=== PATIENT | male | born 1970 | race Caucasian/White ===

== ENCOUNTER 2018-02-10 19:57 | Observation (INO) | payer SELFPAY ==
[2018-02-10 20:23] VITALS: BP 137/79; PULSE 67; RESP 18; TEMP 98.1; O2SAT 95
[2018-02-10] MEDS ORDERED: SODIUM CHLORIDE 0.9% FLUSH 10 ML FLUSH IVF PRN (20:45)
[2018-02-10] MEDS ORDERED: ASPIRIN 81 MG CHEW TAB PO ONE (20:45)
[2018-02-10 21:11] LABS: AUTOMATED NEUTROPHIL # 4.2 TH/MM3 (1.8-7.7); BASOPHIL # 0.1 TH/MM3 (0-0.2); BASOPHIL % 0.8 % (0.0-2.0); EOSINOPHIL # 0.2 TH/MM3 (0-0.4); EOSINOPHIL % 2.2 % (0.0-4.0); HEMATOCRIT 43.5 % (39.0-51.0); HEMOGLOBIN 15.1 GM/DL (13.0-17.0); LYMPH % 31.5 % (9.0-44.0); LYMPHOCYTE # 2.3 TH/MM3 (1.0-4.8); MEAN CELL VOLUME 82.8 FL (80.0-100.0); MEAN CORPUSCULAR HEMOGLOBIN 28.7 PG (27.0-34.0); MEAN CORPUSCULAR HGB CONC 34.6 % (32.0-36.0); MEAN PLATELET VOLUME 8.3 FL (7.0-11.0); MONO % 8.1 % (0.0-8.0); MONOCYTE # 0.6 TH/MM3 (0-0.9); NEUT % 57.4 % (16.0-70.0); PLATELET COUNT 232 TH/MM3 (150-450); RED BLOOD COUNT 5.25 MIL/MM3 (4.50-5.90); RED CELL DISTRIBUTION WIDTH 13.1 % (11.6-17.2); WHITE BLOOD COUNT 7.3 TH/MM3 (4.0-11.0)
--- NOTE | 2018-02-10 21:42 | RADRPT ---
EXAM DATE: 02/10/2018 9:35 PM EDT AGE/SEX: 47 years / Male INDICATIONS: Chest pain. CLINICAL DATA: This is the patient's initial encounter. Patient reports that signs and symptoms have been present for 1 day and indicates a pain score of 10/10. MEDICAL/SURGICAL HISTORY: Hypercholesterolemia. AFIB. . Back surgery. COMPARISON: No prior [facility] exams available for comparison. FINDINGS: A single AP view of the chest demonstrates the lungs to be symmetrically aerated without evidence of mass, infiltrate or effusion. The cardiomediastinal contours are unremarkable. Osseous structures a re intact. CONCLUSION: Negative examination. Electronically signed by: Delfino Moeller MD 02/10/2018 9:41 PM EDT
[2018-02-10 21:43] LABS: TROPONIN I LESS THAN 0.02 NG/ML (0.02-0.05)
[2018-02-10 21:48] LABS: BICARBONATE 21.7 MEQ/L (21.0-32.0); BLOOD UREA NITROGEN 10 MG/DL (7-18); CALCIUM 8.6 MG/DL (8.5-10.1); CHLORIDE 105 MEQ/L (98-107); CREATININE 1.17 MG/DL (0.60-1.30); GLOMERULAR FILTRATION RATE 67 ML/MIN (>89); GLUCOSE,RANDOM 111 MG/DL (74-106); MAGNESIUM 2.2 MG/DL (1.5-2.5); SODIUM (NA) 138 MEQ/L (136-145)
--- NOTE | 2018-02-10 21:53 | PD ---
HPI Chief Complaint: Cardiac Complaint Time Seen by Provider: 20:39 Travel History International Travel<30 days: No Contact w/Intl Traveler<30days: No Traveled to known affect area: No History of Present Illness HPI This is a 47-year-old male with history of atrial fibrillation, who presents today with complaints of shortness of breath and palpitations. Patient also reports discomfort in his chest. He is unable to describe the discomfort but states it is pounding and uncomfortable. He reports having a history of atrial fibrillation and states that it paroxysmal at times. He is currently not in atrial fibrillation at this point. Pain patient denies any productive cough. He resides in [facility] or near there. 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 He reports driving down here yesterday. He reports that he took several breaks while driving down here. There are no other complaints at time of my examination. PFSH Past Medical History Atrial Fibrillation: Yes High Cholesterol: Yes Chest Pain: Yes Tetanus Vaccination: Unknown Past Surgical History Neurologic Surgery: Yes (Back sx x 2) Social History Alcohol Use: Yes (occasionally) Tobacco Use: No Substance Use: No Allergies-Medications (Allergen,Severity, Reaction): Coded Allergies: hydrocodone (Verified Allergy, Severe, itch, 02/10/18) oxycodone (Verified Allergy, Severe, 02/10/18) Reported Meds & Prescriptions Reported Meds & Active Scripts Active Reported Gabapentin 300 Mg Cap 300 Mg PO HS Flexeril (Cyclobenzaprine HCl) 10 Mg Tab 10 Mg PO TID Lisinopril 10 Mg Tab 10 Mg PO DAILY Pantoprazole (Pantoprazole Sodium) 40 Mg Tab 40 Mg PO DAILY PRN Verapamil ER 24 HR (Verapamil HCl) 240 Mg Tab 180 Mg PO DAILY Review of Systems Except as stated in HPI: all other systems reviewed are Neg General / Constitutional: No: Fever, Chills HENT: No: Headaches, Vertigo, Lightheadedness Cardiovascular: Positive: Chest Pain or Discomfort, Palpitations, Irregular Rhythm (history of atrial fibrillation) Respiratory: Positive: Shortness of Breath, No: Cough Gastrointestinal: No: Nausea, Vomiting, Abdominal Pain Musculoskeletal: No: Weakness, Pain Neurologic: No: Weakness, Dizziness, Headache Physical Exam Narrative GENERAL: Well-developed well-nourished male in no acute respiratory distress. SKIN: Focused skin assessment warm/dry. HEAD: Atraumatic. Normocephalic. EYES: No scleral icterus. No injection or drainage. ENT: No nasal bleeding or discharge. Mucous membranes pink and moist. NECK: Trachea midline. Supple. CARDIOVASCULAR: Regular rate and rhythm. No murmur appreciated. No ectopy. RESPIRATORY: No accessory muscle use. Clear to auscultation. Breath sounds equal bilaterally. GASTROINTESTINAL: Abdomen soft, non-tender, nondistended. Hepatic and splenic margins not palpable. MUSCULOSKELETAL: No obvious deformities. No clubbing. No cyanosis. No edema. NEUROLOGICAL: Awake and alert. No obvious cranial nerve deficits. Motor grossly within normal limits. Normal speech. PSYCHIATRIC: Appropriate mood and affect; insight and judgment normal. Data Data Last Documented VS Orders Orders Basic Metabolic Panel (Bmp) (02/10/18 20:39) Ckmb (Isoenzyme) Profile (02/10/18 20:39) Complete Blood Count With Diff (02/10/18 20:39) Magnesium (Mg) (02/10/18 20:39) Prothrombin Time / Inr (Pt) (02/10/18 20:39) Act Partial Throm Time (Ptt) (02/10/18 20:39) Troponin I (02/10/18 20:39) Chest, Single Ap (02/10/18 20:39) Ecg Monitoring (02/10/18 20:39) Bilateral Bp Monitoring (02/10/18 20:39) Iv Access Insert/Monitor (02/10/18 20:39) Oximetry (02/10/18 20:39) Oxygen Administration (02/10/18 20:39) Aspirin Chew (Aspirin Chew) (02/10/18 20:45) Sodium Chloride 0.9% Flush (Ns Flush) (02/10/18 20:45) CKMB (02/10/18 20:50) CKMB% (02/10/18 20:50) Electrocardiogram (02/10/18 20:37) Activity Bed Rest With Brp (02/10/18 23:19) Vital Signs (Adult) Q4H (02/10/18 23:19) Cardiac Rhythm .As Directed (02/10/18 23:19) Notify Dr: Other .PRN (02/10/18 23:19) Notify . Parameters (02/10/18 23:19) Resp Oxygen Nasal Cannula (02/10/18 ) Ckmb (Isoenzyme) Profile (02/10/18 23:45) Ckmb (Isoenzyme) Profile (02/11/18 02:45) Troponin I (02/10/18 23:45) Troponin I (02/11/18 02:45) Electrocardiogram (02/10/18 23:45) Electrocardiogram (02/11/18 02:45) ^ Obtain (02/10/18 23:19) Sodium Chloride 0.9% Flush (Ns Flush) (02/10/18 23:30) Sodium Chloride 0.9% Flush (Ns Flush) (02/10/18 23:30) Inspector Balance Bridge / Telemetry BREANA.Q8H (02/10/18 23:19) CKMB (02/10/18 23:59) CKMB% (02/10/18 23:59) Admit Order (Ed Use Only) (02/11/18 03:02) Labs Laboratory Tests Test 02/10/18 20:50 02/10/18 23:59 White Blood Count 7.3 TH/MM3 Red Blood Count 5.25 MIL/MM3 Hemoglobin 15.1 GM/DL Hematocrit 43.5 % Mean Corpuscular Volume 82.8 FL Mean Corpuscular Hemoglobin 28.7 PG Mean Corpuscular Hemoglobin Concent 34.6 % Red Cell Distribution Width 13.1 % Platelet Count 232 TH/MM3 Mean Platelet Volume 8.3 FL Neutrophils (%) (Auto) 57.4 % Lymphocytes (%) (Auto) 31.5 % Monocytes (%) (Auto) 8.1 % Eosinophils (%) (Auto) 2.2 % Basophils (%) (Auto) 0.8 % Neutrophils # (Auto) 4.2 TH/MM3 Lymphocytes # (Auto) 2.3 TH/MM3 Monocytes # (Auto) 0.6 TH/MM3 Eosinophils # (Auto) 0.2 TH/MM3 Basophils # (Auto) 0.1 TH/MM3 CBC Comment DIFF FINAL Differential Comment Prothrombin Time 10.0 SEC Prothromb Time International Ratio 1.0 RATIO Activated Partial Thromboplast Time 24.4 SEC Blood Urea Nitrogen 10 MG/DL Creatinine 1.17 MG/DL Random Glucose 111 MG/DL Calcium Level 8.6 MG/DL Magnesium Level 2.2 MG/DL Sodium Level 138 MEQ/L Potassium Level 3.6 MEQ/L Chloride Level 105 MEQ/L Carbon Dioxide Level 21.7 MEQ/L Anion Gap 11 MEQ/L Estimat Glomerular Filtration Rate 67 ML/MIN Total Creatine Kinase 124 U/L 108 U/L Creatine Kinase MB 0.9 NG/ML 0.6 NG/ML Troponin I LESS THAN 0.02 NG/ML LESS THAN 0.02 NG/ML MDM Medical Decision Making Medical Screen Exam Complete: Yes Emergency Medical Condition: Yes Differential Diagnosis Metabolic derangement versus paroxysmal A. fib versus pulmonary embolus Narrative Course 47-year-old male visiting here for the [employer], presents today with complaints of palpitations, chest pain, shortness breath. Patient has a history of paroxysmal A. fib. Patient is currently not in A. fib. Given his history and the fact that he is visiting here, we will place him in the chest pain center. I discussed the options with the patient he is amenable to this. I have written orders for the chest pain center patient will be taken to the chest pain center as soon as a bed is available. Diagnosis Primary Impression: Chest pain Additional Impressions: Paroxysmal atrial fibrillation Hypertension Admitting Information Admitting Physician Requests: Observation Scripts Aspirin (Px Aspirin) 325 Mg Tab 325 MG PO DAILY for Blood Clot Prevention, #30 TAB 0 Refills Prov: Dean Gallardo MD 02/13/18 Omid Smith MD Feb 10, 2018 21:53
[2018-02-10] MEDS ORDERED: SODIUM CHLORIDE 0.9% FLUSH 10 ML FLUSH IV FLUSH PRN (23:30)
[2018-02-11] VITALS (9 sets, daily range): BP systolic 111–149; BP diastolic 57–78; PULSE 57–75; RESP 16–18; TEMP 95.9–98; O2SAT 93–98
[2018-02-11] MEDS: SODIUM CHLORIDE 0.9% FLUSH 10 ML FLUSH IV FLUSH SCH ×3 (00:15→20:37)
[2018-02-11 01:08] LABS: TROPONIN I LESS THAN 0.02 NG/ML (0.02-0.05)
[2018-02-11 04:20] LABS: TROPONIN I LESS THAN 0.02 NG/ML (0.02-0.05)
[2018-02-11] MEDS ORDERED: NITROGLYCERIN 0.4 MG SL 25 TABS/BTL SL PRN (07:30)
[2018-02-11] MEDS ORDERED: ONDANSETRON ODT 4 MG TAB PO PRN (07:45)
[2018-02-11] MEDS: ASPIRIN 325 MG TAB PO SCH (08:12)
--- NOTE | 2018-02-11 09:11 | HHI.HP ---
HPI Primary Care Physician Primary Care Physician-[place] Chief Complaint Dyspnea, palpitations, chest pain History of Present Illness 47-year-old male with history of paroxysmal A. fib (diagnosed 1 year ago), hypertension, and migraines presents the emergency room for further evaluation 3 episodes of nonexertional dyspnea, palpitations with accompanying chest heaviness. 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 First episode occurred while driving to [place] Eric evening, duration 15-20 minutes. 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 Last episode occurred around 7:30 PM last evening while eating dinner. Sensation includes fluttering, hot full body flushing sensation, bilateral arms became heavy, and experienced substernal chest heaviness. Episode present quickly and subside quickly without any known precipitating or relieving factors. Duration varies from 10-15 minutes, last evening's episode approximately 45 minutes. First diagnosed with paroxysmal A. fib presented to an ER in [place] with same presenting symptoms. Palpitations seems to be increasing in frequently over last couple of months, often experiencing weekly. Has referral appointment with a button and buckle maker later this month. Review of Systems General: No fatigue, weakness, fever, chills, recent illness, or change in appetite. Has been in his general state of health. HEENT: History of migraine headaches. No vision changes, no nasal congestion or drainage, no dysphasia CV: As stated above. No current chest pressure, heaviness, or discomfort. No further palpitations. RESP: No SOB, cough, wheeze, or history of asthma GI: No nausea, vomiting, bowel changes, diarrhea, constipation, pain, distention , melena, or blood in the stool. : No dysuria, urgency, frequency EXT: No lower leg edema, no paraesthesias MS: No discomfort, injury or change in ROM NEURO: No difficulty with balance, LOC, motor/sensory deficits PSYCH: No anxiety, depression, situational stress SKIN: No rashes, no concerning lesions Past Family Social History Allergies: Coded Allergies: hydrocodone (Verified Allergy, Severe, itch, 02/10/18) oxycodone (Verified Allergy, Severe, 02/10/18) Past Medical History Paroxysmal A. fib, hypertension, migraines Past Surgical History Lumbar surgery 2 Reported Medications Protonix 40 mg daily Lisinopril 10 mg daily Verapamil 180 mg daily Gabapentin 300 mg daily PRN-rarely requires Flexeril 10 mg BID PRN Active Ordered Medications Current Medications Medications (Trade) Dose Ordered Sig/Chris Route Start Time Stop Time Status Last Admin (NS Flush) 2 ml UNSCH PRN IV FLUSH 02/10/18 23:30 (NS Flush) 2 ml BID IV FLUSH 02/10/18 23:30 02/11/18 08:12 (Tylenol) 500 mg Q4H PRN PO 02/11/18 07:30 (Zofran Odt) 4 mg Q6H PRN PO 02/11/18 07:45 (Nitrostat Sl) 0.4 mg Q5M PRN SL 02/11/18 07:30 (Aspirin) 325 mg DAILY PO 02/11/18 09:00 02/11/18 08:12 Family History Noncontributory for early onset cardiovascular disease. Social History Known hypertension. No known hyperlipidemia, diabetes, or coronary artery disease. Lifelong non-smoker. Lifelong user of oral tobacco. Daily or every other day alcohol use, one daily. Illegal drug use. . The patient was [place]. Endorses an active lifestyle, physical job in [employer]. Past cardiac testing Chemical cardiac testing completed one year ago, reported to be unremarkable. Testing completed due to paroxysmal atrial fibrillation identified in ER in [place]. Due to increasing palpitations, scheduled with a button and buckle maker end of this month. Physical Exam Vital Signs Vital Signs Date Time Temp Pulse Resp B/P (MAP) Pulse Ox O2 Delivery O2 Flow Rate FiO2 02/11/18 08:00 96.7 62 17 131/76 (94) 95 02/11/18 06:33 21 02/11/18 04:50 60 02/11/18 04:35 98.0 57 18 111/70 (84) 97 02/11/18 03:53 02/11/18 03:37 62 18 118/69 (85) 97 Room Air 02/11/18 00:00 67 18 113/57 (75) 98 Room Air 02/10/18 20:50 96 Room Air 02/10/18 20:23 98.1 67 18 137/79 (98) 95 Physical Exam GENERAL: Alert WN, WD, NAD, pleasant, male HEAD: NC, AT NECK: Supple, no masses, trachea midline CV: RRR, without murmur, rub, gallop, no JVD, S1-S2 no S3-S4. No carotid or femoral bruits. Chest wall nontender with palpation RESP: Clear lungs throughout bilateral, no crackles, wheeze, rhonchi, symmetrical chest rise, nonlabored, able to speak in full sentences ABD: Soft, NT, ND, no masses, positive bowel tones EXT: Pulses +2x4, no dependent edema MS: Normal tone x4 extremities, no obvious deformities, full range of motion NEURO: CN II through CN XII grossly intact, motor strength 5/5 PSYCH: A+O x3, pleasant affect, appropriate speech, mood, insight and judgment SKIN: Normal turgor, normal texture, no lesions, no rashes, brisk cap refill, even hair distribution Laboratory Laboratory Tests Test 02/10/18 20:50 02/10/18 23:59 02/11/18 03:30 White Blood Count 7.3 Red Blood Count 5.25 Hemoglobin 15.1 Hematocrit 43.5 Mean Corpuscular Volume 82.8 Mean Corpuscular Hemoglobin 28.7 Mean Corpuscular Hemoglobin Concent 34.6 Red Cell Distribution Width 13.1 Platelet Count 232 Mean Platelet Volume 8.3 Neutrophils (%) (Auto) 57.4 Lymphocytes (%) (Auto) 31.5 Monocytes (%) (Auto) 8.1 Eosinophils (%) (Auto) 2.2 Basophils (%) (Auto) 0.8 Neutrophils # (Auto) 4.2 Lymphocytes # (Auto) 2.3 Monocytes # (Auto) 0.6 Eosinophils # (Auto) 0.2 Basophils # (Auto) 0.1 CBC Comment DIFF FINAL Differential Comment Prothrombin Time 10.0 Prothromb Time International Ratio 1.0 Activated Partial Thromboplast Time 24.4 Blood Urea Nitrogen 10 Creatinine 1.17 Random Glucose 111 Calcium Level 8.6 Magnesium Level 2.2 Sodium Level 138 Potassium Level 3.6 Chloride Level 105 Carbon Dioxide Level 21.7 Anion Gap 11 Estimat Glomerular Filtration Rate 67 Total Creatine Kinase 124 108 100 Creatine Kinase MB 0.9 0.6 Troponin I LESS THAN 0.02 LESS THAN 0.02 LESS THAN 0.02 Result Diagram: 02/10/18204902/10/182049 Imaging Last 48 hours Impressions Chest X-Ray 02/10/182038 Signed Impressions: CONCLUSION: Negative examination. Course EKG NSR, LAD, no st t segment changes Caprini VTE Risk Assessment Caprini VTE Risk Assessment: No/Low Risk (score <= 1) Caprini Risk Assessment Model Point Value = 1 Point Value = 2 Point Value = 3 Point Value = 5 Age 41-60 Minor surgery BMI > 25 kg/m2 Swollen legs Varicose veins or History of unexplained or recurrent spontaneous Oral contraceptives or hormone replacement Sepsis (< 1 month) Serious lung disease, including pneumonia (< 1 month) Abnormal pulmonary function Acute myocardial infarction Congestive heart failure (< 1 month) History of inflammatory bowel disease Medical patient at bed rest Age 61-74 Arthroscopic surgery Major open surgery (> 45 min) Laparoscopic surgery (> 45 min) Malignancy Confined to bed (> 72 hours) Immobilizing plaster cast Central venous access Age >= 75 History of VTE Family history of VTE Factor V Leiden Prothrombin [id number] Lupus anticoagulant Anticardiolipin antibodies Elevated serum homocysteine Heparin-induced thrombocytopenia Other congenital or acquired thrombophilia Stroke (< 1 month) Elective arthroplasty Hip, pelvis, or leg fracture Acute spinal cord injury (< 1 month) Prophylaxis Regimen Total Risk Factor Score Risk Level Prophylaxis Regimen 0-1 Low Early ambulation 2 Moderate Order ONE of the following: *Sequential Compression Device (SCD) *Heparin 5000 units SQ BID 3-4 Higher Order ONE of the following medications: *Heparin 5000 units SQ TID *Enoxaparin/Lovenox 40 mg SQ daily (WT < 150 kg, CrCl > 30 mL/min) *Enoxaparin/Lovenox 30 mg SQ daily (WT < 150 kg, CrCl > 10-29 mL/min) *Enoxaparin/Lovenox 30 mg SQ BID (WT < 150 kg, CrCl > 30 mL/min) AND/OR *Sequential Compression Device (SCD) 5 or more Highest Order ONE of the following medications: *Heparin 5000 units SQ TID (Preferred with Epidurals) *Enoxaparin/Lovenox 40 mg SQ daily (WT < 150 kg, CrCl > 30 mL/min) *Enoxaparin/Lovenox 30 mg SQ daily (WT < 150 kg, CrCl > 10-29 mL/min) *Enoxaparin/Lovenox 30 mg SQ BID (WT < 150 kg, CrCl > 30 mL/min) AND *Sequential Compression Device (SCD) Assessment and Plan Assessment and Plan #1 Atypical chest pain-chest pain center. Ruled out 3 sets of EKGs, cardiac enzymes, and monitored on telemetry overnight. Will be seen and evaluated by Dr. Bj Du. Discussed likelihood of completing exercise stress test later this morning after evaluation by button and buckle maker. If unremarkable, plans to be discharged home with follow-up with his PCP in keeping new appointment referral with button and buckle maker. Patient agreeable to plan of care. #2 Tobacco use-strongly encouraged and stressed the importance of oral tobacco use, instructed to quit using oral tobacco #3 History of hypertension-continue lisinopril after home medication reconciled #4 History of GERD-continue Protonix 1215-completed exercise cardiac stress testing, during exam patient developed atrial fibrillation with a wide complex QRS, appeared to be rate related left bundle branch block. Testing stopped, at 2:21 minutes into recovery converted to sinus rhythm, continued to have wide QRS. Approximately one minute after converting to sinus rhythm, wide QRS return to normal QRS pattern. Patient was symptomatic with above, stating same feelings of palpitations he has been experiencing Dr. Du in stress lab during testing and reviewed rhythm. Will admit to hospitalist with button and buckle maker consult. Dr. Du discuss findings with patient and patients in length. Bindu Sparrow Feb 11, 2018 09:11
[2018-02-11] MEDS ORDERED: PANTOPRAZOLE SOD 40 MG DELAYED RELEASE TAB PO ONE (09:15)
--- NOTE | 2018-02-11 10:35 | EKG ---
Date Performed: 02/11/2018 Time Performed: 03:35:21 PTAGE: 47 years EKG: Sinus rhythm VOLTAGE CRITERIA FOR LVH ABNORMAL ECG PREVIOUS TRACING : 02/11/2018 00.10 Since previous tracing, no significant change noted DOCTOR: Bj Du Interpretating Date/Time 02/11/2018 10:34:38
--- NOTE | 2018-02-11 10:38 | EKG ---
Date Performed: 02/11/2018 Time Performed: 00:10:38 PTAGE: 47 years EKG: Sinus rhythm BORDERLINE LEFT AXIS DEVIATION VOLTAGE CRITERIA FOR LVH ABNORMAL ECG PREVIOUS TRACING : 02/10/2018 20.37 DOCTOR: Bj Du Interpretating Date/Time 02/11/2018 10:36:49
--- NOTE | 2018-02-11 12:28 | TR ---
Date Performed: 02/11/2018 Time Performed: 11:23:40 DOCTOR: Bj Du DRUG LIST: CLINICAL HISTORY: CHEST PAIN REASON FOR TEST: Chest pain REASON FOR ENDING: OBSERVATION: CONCLUSION: Bobby protocol attempted. Stopped sec to rhythm changed, appeared to change to atria l fib with rate related left bundle branch block. Durign recovery at 10-20 seconds, rhythm changed to atrial flutter. At 2 minutes 11 second, NSR with narrow complex. Maximum CS=263 Target HR Achieved=1 10.0% Maximum LF=493/90 Total Exercise Time=9:26. During recovery at 1:30 minutes rate converted papa k to normal Sinus rhythm with continued left BBB. One minute after convertion wide QRS returned to normal. Good exercise trista erance. Normal bp response. Reported during rhythm change experienced same chest discomfort and palpa tations that brought him to ER. Suboptimal test. COMMENTS: No ST changes of ischemia seen.
[2018-02-11] MEDS: ACETAMINOPHEN 500 MG CPLT PO PRN ×2 (12:50→20:36)
[2018-02-11] MEDS ORDERED: CYCL10TA PO (13:41)
[2018-02-11] MEDS ORDERED: GABA300C5 PO (13:41)
[2018-02-11] MEDS ORDERED: PANT40TA3 PO (13:41)
[2018-02-11] MEDS ORDERED: LISI10TA3 PO (13:41)
[2018-02-11] MEDS ORDERED: VERA1TAB17 PO (13:41)
--- NOTE | 2018-02-11 14:55 | PD.CONS ---
HPI Service [facility] Consult Requested By chest pain center Reason for Consult arrhythmia during stress test Primary Care Physician No Primary Care Physician Diagnoses: History of Present Illness The patient is a 47-year-old male visiting from [place]. He presented to the emergency department with complaints of fluttering in his chest, weakness , and chest tightness. The tightness in his chest was substernal lasted 15-20 minutes. It did not radiate. He has had intermittent palpitations. Denies any syncope or near syncope. Denies shortness of breath, diaphoretic episodes. He was admitted to the chest pain center. Serial cardiac enzymes were negative. Treadmill stress test produced arrhythmia, atrial fibrillation with left bundle branch block. Review of Systems Constitutional: DENIES: Fever, Chills, Night Sweats Eyes: DENIES: Blurred vision, Vision loss Ears, nose, mouth, throat: DENIES: Hearing loss Respiratory: DENIES: Cough, Wheezing, Sputum production, Shortness of breath Cardiovascular: COMPLAINS OF: Chest pain, Palpitations, DENIES: Dyspnea on Exertion, Lower Extremity Edema Gastrointestinal: DENIES: Abdominal pain, Constipation, Diarrhea, Nausea, Vomiting Genitourinary: DENIES: Urinary frequency, Urinary incontinence, Urgency, Hematuria, Dysuria, Nocturia Musculoskeletal: DENIES: Joint pain, Muscle aches Integumentary: DENIES: Pruritus, Rash Hematologic/lymphatic: DENIES: Bruising Neurologic: DENIES: Headache Past Family Social History Allergies: Coded Allergies: hydrocodone (Verified Allergy, Severe, itch, 02/10/18) oxycodone (Verified Allergy, Severe, 02/10/18) Past Medical History Paroxysmal atrial fibrillation Hypertension Migraine headaches GERD Past Surgical History Lumbar spine surgery 2 Nasal surgery Reported Medications Protonix 40 mg daily Lisinopril 10 mg daily Verapamil 180 mg daily Gabapentin 300 mg daily PRN-rarely requires Flexeril 10 mg BID PRN Family History Diabetes Atrial fibrillation Social History Uses smokeless tobacco. Denies illicit drug use. Drinks 1-2 beers per day. Physical Exam Vital Signs Vital Signs Date Time Temp Pulse Resp B/P (MAP) Pulse Ox O2 Delivery O2 Flow Rate FiO2 02/11/18 12:00 95.9 68 17 118/65 (82) 96 02/11/18 08:00 96.7 62 17 131/76 (94) 95 02/11/18 08:00 58 02/11/18 06:33 21 02/11/18 04:50 60 02/11/18 04:35 98.0 57 18 111/70 (84) 97 02/11/18 03:53 02/11/18 03:37 62 18 118/69 (85) 97 Room Air 02/11/18 00:00 67 18 113/57 (75) 98 Room Air 02/10/18 20:50 96 Room Air 02/10/18 20:23 98.1 67 18 137/79 (98) 95 Physical Exam GENERAL: Well-nourished, well-developed male in no acute distress. HEENT: Normocephalic, atraumatic. Pupils equal, round and reactive. Extraocular movements intact. No scleral icterus. No injection or drainage. Oropharynx is clear. Mucous membranes are moist. CARDIOVASCULAR: Regular rate and rhythm without murmurs, gallops, or rubs. RESPIRATORY: Clear to auscultation. No wheezes, rales, or rhonchi. Breathing is non-labored. GASTROINTESTINAL: Abdomen soft, non-tender, nondistended. EXTREMITIES: No lower extremity edema. No calf tenderness. PSYCH: Alert and oriented x 3. Laboratory Laboratory Tests Test 02/10/18 20:50 02/10/18 23:59 02/11/18 03:30 White Blood Count 7.3 Red Blood Count 5.25 Hemoglobin 15.1 Hematocrit 43.5 Mean Corpuscular Volume 82.8 Mean Corpuscular Hemoglobin 28.7 Mean Corpuscular Hemoglobin Concent 34.6 Red Cell Distribution Width 13.1 Platelet Count 232 Mean Platelet Volume 8.3 Neutrophils (%) (Auto) 57.4 Lymphocytes (%) (Auto) 31.5 Monocytes (%) (Auto) 8.1 Eosinophils (%) (Auto) 2.2 Basophils (%) (Auto) 0.8 Neutrophils # (Auto) 4.2 Lymphocytes # (Auto) 2.3 Monocytes # (Auto) 0.6 Eosinophils # (Auto) 0.2 Basophils # (Auto) 0.1 CBC Comment DIFF FINAL Differential Comment Prothrombin Time 10.0 Prothromb Time International Ratio 1.0 Activated Partial Thromboplast Time 24.4 Blood Urea Nitrogen 10 Creatinine 1.17 Random Glucose 111 Calcium Level 8.6 Magnesium Level 2.2 Sodium Level 138 Potassium Level 3.6 Chloride Level 105 Carbon Dioxide Level 21.7 Anion Gap 11 Estimat Glomerular Filtration Rate 67 Total Creatine Kinase 124 108 100 Creatine Kinase MB 0.9 0.6 Troponin I LESS THAN 0.02 LESS THAN 0.02 LESS THAN 0.02 Result Diagram: 02/10/18204902/10/182049 Imaging Last Impressions Chest X-Ray 02/10/182038 Signed Impressions: CONCLUSION: Negative examination. Assessment and Plan Assessment and Plan 1. Chest pain: Serial cardiac enzymes are negative. Patient developed arrhythmia during treadmill stress test. Monitor on telemetry. Continue aspirin. Nitroglycerin sublingual as needed. 2. Atrial fibrillation, paroxysmal: Patient developed wide-complex tachycardia during exercise treadmill. Currently in sinus rhythm. Continue current medications. Appreciate cardiology recommendations. 3. Palpitations: Check echocardiogram. 4. Hypertension: Continue lisinopril, verapamil. 5. GERD: Continue Protonix. 6. DVT prophylaxis: Low risk. Ambulation. Dean Gallardo MD Feb 11, 2018 14:55
--- NOTE | 2018-02-11 15:22 | MB ---
cc: Sandor Huerta MD DATE: 02/11/2018 HISTORY OF PRESENT ILLNESS: Doug is a very pleasant 47-year-old gentleman with a history of atrial fibrillation, visiting from [place], presents with a chief complaint of shortness of breath and palpitations and discomfort in his chest. He had a treadmill stress test, which was negative for ischemia, but he did feel palpitations and he had what appeared to be rate dependent left bundle branch block with what appeared to be atrial fibrillation and he did feel palpitations on the treadmill. He otherwise denies any fevers, chills, cough, GI or bleeding, PND, orthopnea, syncope or dizziness. PAST MEDICAL HISTORY: Per history of present illness. History of hyperlipidemia, history of chest pain. PAST SURGICAL HISTORY: Back surgery x 2. SOCIAL HISTORY: Drinks alcohol occasionally. Denies tobacco use. ALLERGIES: HYDROCODONE, OXYCODONE. MEDICATIONS: In the hospital: Aspirin 325 daily. PHYSICAL EXAMINATION: VITAL SIGNS: Blood pressure 118/65, pulse 68, respiratory rate 17, temperature 95.9, sat 96% on room air. GENERAL: He is alert and oriented x 3, in no acute distress. NECK: Supple. No JVD. No bruit. CARDIOVASCULAR: S1, S2. No murmurs, rubs or gallops. LUNGS: Clear to auscultation bilaterally. ABDOMEN: Soft, nontender, nondistended. Positive bowel sounds. EXTREMITIES: No lower extremity edema. LABORATORY DATA: Exercise treadmill test performed by Dr. Du. The patient exercised 9 minutes 26 seconds on a standard Bobby protocol. Maximum heart rate was 150. The patient went into atrial fibrillation with a left bundle branch block. It was noted it took a minute and 30 seconds for him to return to normal sinus rhythm. There were no ST-T changes. He did have chest discomfort as well. EKG on admission: Normal sinus rhythm at 63 beats per minute, left anterior fascicular block, LVH. Repeat EKG: Normal sinus rhythm at 64 beats per minute, LVH. Third EKG: Normal sinus rhythm at 61 beats per minute, LVH. Chest x-ray: Negative examination. White count 7.3, hemoglobin 15.1, hematocrit 43.5, platelet count 232. Troponin less than 0.02 x 3. Sodium 138, potassium 3.6, chloride 105, bicarbonate 21.7, BUN 10, creatinine 1.17. INR is 1.0. DIAGNOSES: 1. Atypical chest pain. 2. Paroxysmal atrial fibrillation. 3. Rate dependent left bundle branch block. 4. LVH. DISCUSSION: I have explained to the patient I cannot determine his CHADS score without a 2-D echo. The patient lives in [place]. He wants to go home. His stress test is low risk. His cardiac enzymes are negative. There is no ischemia on his EKG. There was no objective evidence of ischemia. I do think it is low risk for him to go back home to [place] and followup with a director recreation within 7 days. In the meantime, take aspirin 81 mg daily. I did inform him that after 7 days, his risk would be moderate to high risk without further evaluation and management and also to call 911 if his chest pain lasts more than 15 minutes. Alternatively, if the patient stays we will followup 2-D echo and further risk stratify him based on his CHADS score. Sandor Huerta MD AWC/TL , 01:41 PM , 03:22 PM
[2018-02-11] MEDS ORDERED: VERAPAMIL HCL 180 MG SUSTAINED RELEASE TAB PO ONE (16:00)
--- NOTE | 2018-02-11 17:31 | EKG ---
Date Performed: 02/10/2018 Time Performed: 20:37:51 PTAGE: 47 years EKG: Sinus rhythm BORDERLINE LEFT AXIS DEVIATION PROMINENT VOLTAGE, CANNOT EXCLUDE LVH ABNORMAL ECG NO PREVIOUS TRACING DOCTOR: Bj Du Interpretating Date/Time 02/11/2018 17:29:28
[2018-02-11] MEDS ORDERED: GABAPENTIN 300 MG CAP PO ONE (22:30)
[2018-02-12] VITALS (11 sets, daily range): BP systolic 108–140; BP diastolic 60–75; PULSE 51–66; RESP 16; TEMP 97.6–98.6; O2SAT 95–97
[2018-02-12] MEDS: ACETAMINOPHEN 500 MG CPLT PO PRN ×3 (05:29→21:00)
[2018-02-12] MEDS: VERAPAMIL HCL 180 MG SUSTAINED RELEASE TAB PO SCH (09:24)
[2018-02-12] MEDS: ASPIRIN 325 MG TAB PO SCH (09:24)
[2018-02-12] MEDS: LISINOPRIL 10 MG TAB PO SCH (09:25)
[2018-02-12] MEDS: SODIUM CHLORIDE 0.9% FLUSH 10 ML FLUSH IV FLUSH SCH ×2 (09:25→19:54)
[2018-02-12] MEDS: PANTOPRAZOLE SOD 40 MG DELAYED RELEASE TAB PO PRN (09:27)
--- NOTE | 2018-02-12 09:59 | HHI.PR ---
Subjective Remarks Follow-up for palpitations, chest discomfort, abnormal walking treadmill stress test. Patient reports overall feeling well, but did have 10-15 minutes of "fluttering" in his chest. He denies any specific chest pain or associated shortness of breath. He states he did not notify anyone and the fluttering went away on its own. He now agrees to stay for cardiac workup and any evaluation recommended by cardiology Dr. Huerta. Objective Vitals Vital Signs Date Time Temp Pulse Resp B/P (MAP) Pulse Ox O2 Delivery O2 Flow Rate FiO2 02/12/18 07:06 97.6 58 16 140/75 (96) 96 02/12/18 05:12 97.9 63 16 123/74 (90) 96 02/12/18 02:25 51 02/12/18 00:33 98.1 61 16 108/61 (77) 97 02/11/18 20:30 97.9 67 16 149/73 (98) 93 02/11/18 17:00 67 02/11/18 16:00 97.1 75 18 124/78 (93) 94 02/11/18 13:50 18 02/11/18 12:00 95.9 68 17 118/65 (82) 96 I/O 02/11/18 02/11/18 02/11/18 02/12/18 02/12/18 02/12/18 07:00 15:00 23:00 07:00 15:00 23:00 Intake Total 480 ml Balance 480 ml Intake Oral 480 ml # Voids 3 # Bowel Movements 0 Result Diagram: 02/10/18204902/10/182049 Imaging Last Impressions Chest X-Ray 02/10/182038 Signed Impressions: CONCLUSION: Negative examination. Objective Remarks GENERAL: Well-nourished, well-developed middle-aged male patient in [facility]. SKIN: Warm and dry. No rash. HEENT: Normocephalic. Atraumatic. Pupils equal and round. Mucous membranes pink and moist. CARDIOVASCULAR: Regular rate and rhythm. No murmur appreciated. RESPIRATORY: No accessory muscle use. Clear to auscultation. Breath sounds equal bilaterally. GASTROINTESTINAL: Abdomen soft, non-tender, nondistended. Normoactive bowel sounds x4. MUSCULOSKELETAL: No obvious deformities. Extremities without clubbing, cyanosis , or edema. NEUROLOGICAL: Awake and alert. No obvious cranial nerve deficits. Motor grossly within normal limits. Moving all extremities spontaneously. Normal speech. PSYCHIATRIC: Appropriate mood and affect; insight and judgment normal. Medications and IVs Current Medications Medications (Trade) Dose Ordered Sig/Chris Route Start Time Stop Time Status Last Admin (NS Flush) 2 ml UNSCH PRN IV FLUSH 02/10/18 23:30 (NS Flush) 2 ml BID IV FLUSH 02/10/18 23:30 02/12/18 09:25 (Tylenol) 500 mg Q4H PRN PO 02/11/18 07:30 02/12/18 05:29 (Zofran Odt) 4 mg Q6H PRN PO 02/11/18 07:45 (Nitrostat Sl) 0.4 mg Q5M PRN SL 02/11/18 07:30 (Aspirin) 325 mg DAILY PO 02/11/18 09:00 02/12/18 09:24 (Prinivil) 10 mg DAILY PO 02/12/18 09:00 02/12/18 09:25 (Protonix) 40 mg DAILY PRN PO 02/11/18 15:00 02/12/18 09:27 (Isoptin Sr) 180 mg DAILY PO 02/12/18 09:00 02/12/18 09:24 A/P Assessment and Plan 47-year-old male with history of paroxysmal A. fib, hypertension, migraines, presents with episodes of palpitations, dyspnea, and chest heaviness Atypical chest pain/palpitations/dyspnea: Initially admitted to chest pain center, ACS ruled out with negative serial cardiac enzymes 3 and EKG without acute ischemic changes, however patient developed arrhythmia during treadmill stress test, therefore admitted to hospitalist with cardiology consulted. -Treadmill stress test showed atrial fibrillation with a wide complex QRS, appeared to be rate related left bundle branch block; recovered to NSR after resting -Monitor on telemetry -Echocardiogram with EF 60-65% -Consult cardiology, seen by Dr. Huerta, appreciate recommendations -Will check Nuclear Stress Test, re-consult cardiology if abnormal Paroxysmal Atrial Fibrillation: seen on exercise treadmill test as above, with hx of paroxysmal afib diagnosed 1 year ago. Currently in NSR. -[id number] score of 1 (HTN), therefore NOAC/Comadin not indicated in this 47yo male with no hx of CHF/TIA/CVA/SC/DM. Stroke risk 0.6% per year and therefore low risk, anticoagulation with aspirin only. -Continue aspirin -Cardiology consulted as above -Continue patient's verapamil -Monitor on telemetry Hypertension: BP well controlled. -Continue patient's lisinopril and verapamil -Monitor BP, adjust antihypertensives as needed Tobacco Use: chronic -counseled on cessation GERD: chronic -continue PPI DVT Prophylaxis: patient is ambulatory Discharge Planning Discharge pending nuclear stress test. Naima Gutierrez PA-C Feb 12, 2018 09:59
--- NOTE | 2018-02-12 14:06 | ECHRPT ---
Indication: a fib CONCLUSIONS Normal left ventricular size and wall thickness. The left ventricular systolic function is normal wi th an estimated ejection fraction in the range of 60-65%. Normal wall motion. Trileaflet aortic valve. Minimal leaflet sclerosis. BP: / HR: Rhythm: MEASUREMENTS (Male / Female) Normal Values Technical Quality: 2D ECHO LV Diastolic Diameter PLAX 5.5 cm 4.2 - 5.9 / 3.9 - 5.3 cm LV Systolic Diameter PLAX 4.1 cm IVS Diastolic Thickness 1.0 cm 0.6 - 1.0 / 0.6 - 0.9 cm LVPW Diastolic Thickness 0.6 cm 0.6 - 1.0 / 0.6 - 0.9 cm LV Relative Wall Thickness 0.3 RV Internal Dim ED PLAX 2.9 cm LA Systolic Diameter LX 3.7 cm 3.0 - 4.0 / 2.7 - 3.8 cm M-MODE Aortic Root Diameter MM 4.0 cm AV Cusp Separation MM 2.4 cm DOPPLER Mitral E Point Velocity 81.4 cm/s Mitral A Point Velocity 52.8 cm/s Mitral E to A Ratio 1.5 TR Peak Velocity 252.0 cm/s TR Peak Gradient 25.4 mmHg Right Atrial Pressure 5.0 mmHg Pulmonary Artery Systolic Pressu 30.4 mmHg Right Ventricular Systolic Press 30.4 mmHg FINDINGS LEFT VENTRICLE Normal left ventricular size and wall thickness. The left ventricular systolic function is normal wi th an estimated ejection fraction in the range of 60-65%. Normal wall motion. RIGHT VENTRICLE Normal right ventricular size and systolic function. LEFT ATRIUM The left atrial size is normal. RIGHT ATRIUM The right atrial size is normal. ATRIAL SEPTUM Normal atrial septal thickness without atrial level shunting by limited color doppler interrogation. AORTA The aortic root and proximal ascending aorta are normal in size on limited imaging. MITRAL VALVE Structurally normal mitral valve. No mitral valve stenosis or regurgitation. AORTIC VALVE Trileaflet aortic valve. Minimal leaflet sclerosis. TRICUSPID VALVE Structurally normal tricuspid valve. No tricuspid valve stenosis or regurgitation. PULMONARY VALVE No pulmonary valve regurgitation or stenosis. VESSELS The inferior vena cava is normal in size. PERICARDIUM No pericardial effusion. Octavio Gamino MD (Electronically Signed) Final Date:12 February 2018 14:05
--- NOTE | 2018-02-12 15:02 | PD.CARD.PN ---
Subjective Subjective Remarks alert in nad Objective Medications Current Medications Medications (Trade) Dose Ordered Sig/Chris Route Start Time Stop Time Status Last Admin (NS Flush) 2 ml UNSCH PRN IV FLUSH 02/10/18 23:30 (NS Flush) 2 ml BID IV FLUSH 02/10/18 23:30 02/12/18 09:25 (Tylenol) 500 mg Q4H PRN PO 02/11/18 07:30 02/12/18 05:29 (Zofran Odt) 4 mg Q6H PRN PO 02/11/18 07:45 (Nitrostat Sl) 0.4 mg Q5M PRN SL 02/11/18 07:30 (Aspirin) 325 mg DAILY PO 02/11/18 09:00 02/12/18 09:24 (Prinivil) 10 mg DAILY PO 02/12/18 09:00 02/12/18 09:25 (Protonix) 40 mg DAILY PRN PO 02/11/18 15:00 02/12/18 09:27 (Isoptin Sr) 180 mg DAILY PO 02/12/18 09:00 02/12/18 09:24 Vital Signs / I&O Vital Signs Date Time Temp Pulse Resp B/P (MAP) Pulse Ox O2 Delivery O2 Flow Rate FiO2 02/12/18 11:07 97.9 57 16 129/75 (93) 95 02/12/18 07:30 21 02/12/18 07:06 97.6 58 16 140/75 (96) 96 02/12/18 07:01 60 02/12/18 05:12 97.9 63 16 123/74 (90) 96 02/12/18 02:25 51 02/12/18 00:33 98.1 61 16 108/61 (77) 97 02/11/18 20:30 97.9 67 16 149/73 (98) 93 02/11/18 17:00 67 02/11/18 16:00 97.1 75 18 124/78 (93) 94 I/O 02/11/18 02/11/18 02/11/18 02/12/18 02/12/18 02/12/18 06:59 14:59 22:59 06:59 14:59 22:59 Intake Total 480 ml Balance 480 ml Intake Oral 480 ml # Voids 3 # Bowel Movements 0 Physical Exam GENERAL: SKIN: Warm and dry. HEAD: Normocephalic. EYES: No scleral icterus. No injection or drainage. NECK: Supple, trachea midline. No JVD or lymphadenopathy. CARDIOVASCULAR: Regular rate and rhythm without murmurs, gallops, or rubs. RESPIRATORY: Breath sounds equal bilaterally. No accessory muscle use. GASTROINTESTINAL: Abdomen soft, non-tender, nondistended. MUSCULOSKELETAL: No cyanosis, or edema. BACK: Nontender without obvious deformity. No CVA tenderness. Assessment and Plan Problem List: (1) Paroxysmal atrial fibrillation ICD Codes: I48.0 - Paroxysmal atrial fibrillation (2) Chest pain ICD Codes: R07.9 - Chest pain, unspecified (3) Hypertension ICD Codes: I10 - Essential (primary) hypertension Assessment and Plan 1.) PAF/HTN - [id number] score=1, male gender, coumadin or noac indicated to lower risk of cva, rec coumadin with inr > 2.0 prior to discharge or noac x 7 days with f/u [facility] before 7 days, dc aspirin if patient starts coumadin or noac Sandor Huerta MD Feb 12, 2018 15:02
[2018-02-12] MEDS ORDERED: GABAPENTIN 300 MG CAP PO SCH (21:15)
[2018-02-13 02:55] VITALS: BP 123/71; PULSE 71; RESP 16; TEMP 98.6; O2SAT 97
[2018-02-13 07:32] VITALS: PULSE 64
[2018-02-13 08:09] VITALS: BP 132/76; PULSE 72; RESP 18; TEMP 97.9; O2SAT 93
[2018-02-13] MEDS ORDERED: REGADENOSON INJ 0.4 MG/5 ML SYR ONE (09:15)
[2018-02-13] MEDS: VERAPAMIL HCL 180 MG SUSTAINED RELEASE TAB PO SCH (10:49)
[2018-02-13] MEDS: ASPIRIN 325 MG TAB PO SCH (10:49)
[2018-02-13] MEDS: LISINOPRIL 10 MG TAB PO SCH (10:49)
[2018-02-13] MEDS: PANTOPRAZOLE SOD 40 MG DELAYED RELEASE TAB PO PRN (10:50)
[2018-02-13] MEDS: SODIUM CHLORIDE 0.9% FLUSH 10 ML FLUSH IV FLUSH SCH (10:51)
--- NOTE | 2018-02-13 11:39 | RADRPT ---
EXAM DATE: 02/13/2018 10:38 AM EDT AGE/SEX: 47 years / Male INDICATIONS:Atrial Fibrillation. Left bundle branch block Palpitations and dyspnea. CLINICAL DATA: This is the patient's initial encounter. Patient reports that signs and symptoms have been present for 1 day and indicates a pain score of 0/10. MEDICAL/SURGICAL HISTORY: . Atrial fibrillation . Back surgery. COMPARISON: No prior [facility] exams available for comparison. DOSE: 8.8 mCi Tc 99m Myoview at rest 27.2 mCi [id number] at stress 0.4 mg Lexiscan STRESS SYMPTOMS: Chest pain, stomach pain, and heart racing. EJECTION FRACTION: 54 % TECHNIQUE: The patient underwent pharmacologic stress with infusion of prescribed dose. Continuous ECG tracing was monitored during stress. Gated SPECT imaging was performed after stress and conventi onal SPECT imaging was performed at rest. The examination was performed on a SPECT/CT scanner, both attenuation and non-corrected datasets were reviewed. FINDINGS: Distribution: The maximum perfused segment at stress is in the anterolateral wall. Perfusion Study: The pattern of perfusion at stress is within normal limits. No fixed or reversib le perfusion defect is identified. Gated Study: There are intact wall motion and wall thickening without hypokinetic or dyskinetic segm ents. The ejection fraction is calculated at 54%. RISK CATEGORY: Low (<1% Annual Motality Rate) CONCLUSION: 1. No fixed or reversible perfusion defect is identified. 2. Normal left ventricle wall motion with calculated ejection fraction of 54%. Electronically signed by: Luis Armando Lujan MD 02/13/2018 11:37 AM EDT
[2018-02-13 11:56] VITALS: BP 140/77; PULSE 68; RESP 18; TEMP 98.7; O2SAT 96
[2018-02-13 12:30] VITALS: PULSE 63
[2018-02-13 12:38] VITALS: PULSE 64
--- NOTE | 2018-02-13 13:09 | HHI.PR ---
Subjective Remarks Follow up a-fib. Patient is having short episodes of heart palpitations, fluttering. Denies chest pain or dyspnea. Objective Vitals Vital Signs Date Time Temp Pulse Resp B/P (MAP) Pulse Ox O2 Delivery O2 Flow Rate FiO2 02/13/18 12:53 21 02/13/18 12:38 64 02/13/18 12:30 63 02/13/18 11:56 98.7 68 18 140/77 (98) 96 02/13/18 08:09 97.9 72 18 132/76 (94) 93 02/13/18 07:32 64 02/13/18 02:55 98.6 71 16 123/71 (88) 97 02/12/18 23:00 56 02/12/18 22:55 98.2 66 16 111/60 (77) 95 02/12/18 22:00 18 02/12/18 19:42 98.1 64 16 130/75 (93) 96 02/12/18 17:15 65 02/12/18 15:22 98.6 64 16 125/75 (92) 95 Result Diagram: 02/10/18204902/10/182049 Imaging Last Impressions Myocardial Perfusion Scan Nuc Med 02/13/18 0000 Signed Impressions: CONCLUSION: 1. No fixed or reversible perfusion defect is identified. 2. Normal left ventricle wall motion with calculated ejection fraction of 54%. Chest X-Ray 02/10/182038 Signed Impressions: CONCLUSION: Negative examination. Objective Remarks General: No acute distress. Heart: Regular rate and rhythm. No murmur. Lungs: Clear to auscultation bilaterally. No wheezes, rales, or rhonchi. Breathing is nonlabored. Abdomen: Soft, nontender, nondistended. Extremities: No lower extremity edema. Psych: Alert and oriented. Neuro: Normal speech. No focal deficits noted. Procedures None Urinary Catheter: No Vascular Central Line Catheter: No A/P Assessment and Plan 1. Atypical chest pain, palpitations, dyspnea: Patient developed atrial fibrillation with wide complex tachycardia and left bundle branch block on treadmill stress test. Now in normal sinus rhythm. Serial cardiac enzymes were negative. Nuclear stress test is negative. The patient continues to have episodes of palpitations, which do correlate with nonspecific changes on the telemetry monitoring. I have spoken with Dr. Huerta, cardiology, who will review the telemetry. 2. Paroxysmal atrial fibrillation: [id number] score of 1 due to hypertension. Per guidelines, options are aspirin versus Coumadin/NOAC. The patient states that he does not want to be on full anticoagulation, but is agreeable to aspirin. 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 Will recommend continuing aspirin. 3. Hypertension: Blood pressure is well controlled. Continue lisinopril, verapamil. 4. Tobacco abuse: Patient uses smokeless tobacco. Counseled to quit. 5. GERD: Continue PPI. 6. DVT prophylaxis: Ambulation. Discharge Planning Discharge home soon pending further evaluation of palpitation episodes by cardiology. Dean Gallardo MD Feb 13, 2018 13:09
[2018-02-13] MEDS ORDERED: ASA325 PO (14:41)
--- NOTE | 2018-02-13 14:42 | HHI.DCPOC ---
Discharge Care Plan Diagnosis: (1) Paroxysmal atrial fibrillation (2) Chest pain (3) Hypertension Goals to Promote Your Health * To prevent worsening of your condition and complications * To maintain your health at the optimal level Directions to Meet Your Goals Take your medications as prescribed Follow your dietary instruction Follow activity as directed Keep your appointments as scheduled Take your immunizations and boosters as scheduled If your symptoms worsen call your PCP, if no PCP go to Urgent Care Center or Emergency Room Smoking is Dangerous to Your Health. Avoid second hand smoke Call the 24-hour hour crisis hotline for domestic abuse at Dean Gallardo MD Feb 13, 2018 14:42
--- NOTE | 2018-02-13 14:46 | HHI.DS ---
Discharge Summary Admission Date Feb 11, 2018 at 03:03 Discharge Date: Feb 13, 2018 Admitting Diagnosis chest pain, paroxysmal atrial fibrilation. (1) Paroxysmal atrial fibrillation ICD Code: I48.0 - Paroxysmal atrial fibrillation (2) Chest pain ICD Code: R07.9 - Chest pain, unspecified (3) Hypertension ICD Code: I10 - Essential (primary) hypertension Procedures None Brief History - From Admission The patient is a 47-year-old male visiting from [place]. He presented to the emergency department with complaints of fluttering in his chest, weakness , and chest tightness. The tightness in his chest was substernal lasted 15-20 minutes. It did not radiate. He has had intermittent palpitations. Denies any syncope or near syncope. Denies shortness of breath, diaphoretic episodes. He was admitted to the chest pain center. Serial cardiac enzymes were negative. Treadmill stress test produced arrhythmia, atrial fibrillation with left bundle branch block. CBC/BMP: 02/10/18204902/10/182049 Significant Findings Laboratory Tests Test 02/10/18 20:50 02/10/18 23:59 02/11/18 03:30 Monocytes (%) (Auto) 8.1 % (0.0-8.0) Random Glucose 111 MG/DL (74-106) Estimat Glomerular Filtration Rate 67 ML/MIN (>89) Troponin I LESS THAN 0.02 NG/ML LESS THAN 0.02 NG/ML LESS THAN 0.02 NG/ML Imaging Last Impressions Myocardial Perfusion Scan Nuc Med 02/13/18 0000 Signed Impressions: CONCLUSION: 1. No fixed or reversible perfusion defect is identified. 2. Normal left ventricle wall motion with calculated ejection fraction of 54%. Chest X-Ray 02/10/182038 Signed Impressions: CONCLUSION: Negative examination. PE at Discharge General: No acute distress. Heart: Regular rate and rhythm. No murmur. Lungs: Clear to auscultation bilaterally. No wheezes, rales, or rhonchi. Breathing is nonlabored. Abdomen: Soft, nontender, nondistended. Extremities: No lower extremity edema. Psych: Alert and oriented. Neuro: Normal speech. No focal deficits noted. Hospital Course Patient was admitted to the chest pain center. Serial cardiac enzymes were negative. Treadmill stress test was done. During the treadmill stress, patient developed wide-complex tachycardia, atrial fibrillation. Also noted to have left bundle branch block. Treadmill stress test was terminated and the patient was admitted to the medical service. Cardiology was consulted. Echocardiogram was done. [id number] score was 1. Recommendation was initially made by cardiology for the patient to be initiated on Coumadin or NOAC. The patient did not want to be on full anticoagulation. Based on the guidelines, full aspirin as an option a score of 1. Patient was started on aspirin 325 mg daily. Lexiscan nuclear stress test was negative. Patient continued to have fluttering sensations, palpitations. Cardiology was notified and reviewed his telemetry. The patient was having artifact show up on the telemetry, approximately at the times he was experiencing symptoms. No evidence of arrhythmia. Patient is in sinus rhythm on telemetry. He was cleared for discharge by cardiology. He was counseled to avoid driving. 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 He has an appointment already scheduled for 6 days from now. Pt Condition on Discharge: Stable Discharge Disposition: Discharge Home Discharge Time: > 30 minutes Discharge Instructions DIET: Follow Instructions for: Heart Healthy Diet Activities you can perform: See Additionl Instruction Activities to Avoid: Driving Follow up Referrals: Cardiology - 02/19/18 PCP Follow-up - 1 Week New Medications: Aspirin (Px Aspirin) 325 Mg Tab 325 MG PO DAILY for Blood Clot Prevention, #30 TAB 0 Refills Continued Medications: Cyclobenzaprine (Flexeril) 10 Mg Tab 10 MG PO TID for Muscle Spasm, #90 TAB 0 Refills Gabapentin (Gabapentin) 300 Mg Cap 300 MG PO HS, #30 CAP 0 Refills Lisinopril (Lisinopril) 10 Mg Tab 10 MG PO DAILY, #30 TAB 0 Refills Pantoprazole (Pantoprazole) 40 Mg Tab 40 MG PO DAILY PRN for REFLUX, #30 TAB 0 Refills Verapamil ER 24 HR (Verapamil ER 24 HR) 240 Mg Tab 180 MG PO DAILY, #30 TAB 0 Refills Dean Gallardo MD Feb 13, 2018 14:46
--- NOTE | 2018-02-13 15:20 | PD.CARD.PN ---
Subjective Subjective Remarks alert in nad Objective Medications Current Medications Medications (Trade) Dose Ordered Sig/Chris Route Start Time Stop Time Status Last Admin (NS Flush) 2 ml UNSCH PRN IV FLUSH 02/10/18 23:30 (NS Flush) 2 ml BID IV FLUSH 02/10/18 23:30 02/13/18 10:51 (Tylenol) 500 mg Q4H PRN PO 02/11/18 07:30 02/12/18 21:00 (Zofran Odt) 4 mg Q6H PRN PO 02/11/18 07:45 (Nitrostat Sl) 0.4 mg Q5M PRN SL 02/11/18 07:30 (Aspirin) 325 mg DAILY PO 02/11/18 09:00 02/13/18 10:49 (Prinivil) 10 mg DAILY PO 02/12/18 09:00 02/13/18 10:49 (Protonix) 40 mg DAILY PRN PO 02/11/18 15:00 02/13/18 10:50 (Isoptin Sr) 180 mg DAILY PO 02/12/18 09:00 02/13/18 10:49 (Neurontin) 300 mg HS PO 02/12/18 21:15 02/12/18 21:18 Vital Signs / I&O Vital Signs Date Time Temp Pulse Resp B/P (MAP) Pulse Ox O2 Delivery O2 Flow Rate FiO2 02/13/18 12:53 21 02/13/18 12:38 64 02/13/18 12:30 63 02/13/18 11:56 98.7 68 18 140/77 (98) 96 02/13/18 08:09 97.9 72 18 132/76 (94) 93 02/13/18 07:32 64 02/13/18 02:55 98.6 71 16 123/71 (88) 97 02/12/18 23:00 56 02/12/18 22:55 98.2 66 16 111/60 (77) 95 02/12/18 22:00 18 02/12/18 19:42 98.1 64 16 130/75 (93) 96 02/12/18 17:15 65 02/12/18 15:22 98.6 64 16 125/75 (92) 95 Physical Exam GENERAL: SKIN: Warm and dry. HEAD: Normocephalic. EYES: No scleral icterus. No injection or drainage. NECK: Supple, trachea midline. No JVD or lymphadenopathy. CARDIOVASCULAR: Regular rate and rhythm without murmurs, gallops, or rubs. RESPIRATORY: Breath sounds equal bilaterally. No accessory muscle use. GASTROINTESTINAL: Abdomen soft, non-tender, nondistended. MUSCULOSKELETAL: No cyanosis, or edema. BACK: Nontender without obvious deformity. No CVA tenderness. Imaging Last 24 hours Impressions Myocardial Perfusion Scan [facility] 02/13/18 0000 Signed Impressions: CONCLUSION: 1. No fixed or reversible perfusion defect is identified. 2. Normal left ventricle wall motion with calculated ejection fraction of 54%. Assessment and Plan Problem List: (1) Paroxysmal atrial fibrillation ICD Codes: I48.0 - Paroxysmal atrial fibrillation (2) Chest pain ICD Codes: R07.9 - Chest pain, unspecified (3) Hypertension ICD Codes: I10 - Essential (primary) hypertension Assessment and Plan 1.) PAF/HTN - [id number] score=1, male gender, coumadin or noac indicated to lower risk of cva, rec coumadin with inr > 2.0 prior to discharge or noac x 7 days with [facility], dc aspirin if patient starts coumadin or noac Sandor Huerta MD Feb 13, 2018 15:20
== END 2018-02-13 17:10 | disposition home or self-care (01) ==
LOC: NEPE 19:57 → NEDA 02-11 03:03 → NEPFCDU 02-11 03:54
PROVIDERS: ADMIT Family Medicine; ATTEND Family Medicine
DX: R07.89 Other chest pain (principal); I10 Essential (primary) hypertension; K21.9 Gastro-esophageal reflux disease without esophagitis; I48.0 Paroxysmal atrial fibrillation; I44.7 Left bundle-branch block, unspecified; F17.200 Nicotine dependence, unspecified, uncomplicated; E78.00 Pure hypercholesterolemia, unspecified; Z79.899 Other long term (current) drug therapy; G43.909 Migraine, unspecified, not intractable, without status migrainosus; R00.0 Tachycardia, unspecified; R00.2 Palpitations; R94.31 Abnormal electrocardiogram [ECG] [EKG]
CPT/HCPCS: 71045; 78452; 80048; 82550; 82552; 83735; 84484; 85025; 85610; 85730; 93005; 93017; 93306; 99285; A9502; G0378; J2785